=== PATIENT | female | born 1960 | race African-American/Black ===

== ENCOUNTER → 2019-02-19 15:43 | Outpatient (CLI) | payer OTHER, SELFPAY ==
[2019-02-19 14:52] VITALS: BMI 35.8
[2019-02-19 17:57] LABS: T4 Free Direct 1.02 ng/dL (0.76-1.46); Thyroid Stim Hormone (TSH) 1.44 uIU/mL (0.358-3.74)
== END ==
PROVIDERS: Referring Provider Internal Medicine Endocrinology, Diabetes & Metabolism; Visit Provider Internal Medicine Endocrinology, Diabetes & Metabolism
DX: E03.8 Other specified hypothyroidism (principal); E06.3 Autoimmune thyroiditis
CPT/HCPCS: 36415; 84439; 84443